=== PATIENT | male | born 1945 | race Caucasian/White ===

== ENCOUNTER 2021-02-20 12:40 | Outpatient (CLI) | payer BC ==
[2021-02-20] MEDS ORDERED: OMNIPAQUE 350 MG/ML, 100ML BOTTLE ONE (15:52)
== END 2021-02-20 23:59 | disposition home or self-care (01) ==
LOC: CFH 12:40
PROVIDERS: ATTEND Internal Medicine Cardiovascular Disease
DX: Z01.818 Encounter for other preprocedural examination (principal); C95.90 Leukemia, unspecified not having achieved remission; I48.91 Unspecified atrial fibrillation; I48.92 Unspecified atrial flutter; R91.8 Other nonspecific abnormal finding of lung field
CPT/HCPCS: 71046; 75572; Q9967

== ENCOUNTER → 2021-02-20 | Outpatient (CLI) | payer BC | END | disposition home or self-care (01) | LOC: STAR 14:09 | PROVIDERS: ATTEND Family Medicine | DX: Z20.822 Contact with and (suspected) exposure to COVID-19 (principal) | CPT/HCPCS: U0003 ==

== ENCOUNTER 2021-02-25 05:59 | Inpatient (IN) | payer BC ==
[~2021-02-25] VITALS: Ht 190.5 cm; Wt 103.0 kg
[2021-02-25] MEDS ORDERED: SODIUM CHLORIDE 0.9% 1,000 ML IV SCH (06:30)
[2021-02-25] MEDS ORDERED: SODIUM CHLORIDE 0.9% 1,000 ML IV ONE (06:30)
[2021-02-25 06:37] VITALS: BP 121/75
[2021-02-25] MEDS ORDERED: METO25TA91 PO (06:44)
[2021-02-25] MEDS ORDERED: ATOR20TA37 PO (06:44)
[2021-02-25] MEDS ORDERED: CITA20TA9 PO (06:44)
[2021-02-25] MEDS ORDERED: RIVA15TA PO (06:44)
[2021-02-25] MEDS ORDERED: DILT360C26 PO (06:44)
[2021-02-25] MEDS ORDERED: LIDOCAINE 1%, 20ML ONE (07:21)
[2021-02-25] MEDS ORDERED: FENTANYL PF 100 MCG/2ML ONE (07:40)
[2021-02-25] MEDS ORDERED: PHENYLEPHRINE 10 MG/ML ONE (07:51)
[2021-02-25] MEDS ORDERED: ONDANSETRON 2MG/ML, 2ML ONE (07:52)
[2021-02-25] MEDS ORDERED: PROPOFOL 10 MG/ML, 20ML ONE (07:52)
[2021-02-25] MEDS ORDERED: DEXAMETHASONE 4 MG/ML, 1ML ONE (07:52)
[2021-02-25] MEDS ORDERED: SUCCINYLCHOLINE 20 MG/ML, 10ML ONE (07:52)
[2021-02-25] MEDS ORDERED: ROCURONIUM 10MG/ML,5ML ONE ×2 (07:52→10:04)
[2021-02-25] MEDS ORDERED: LABETALOL 5MG/ML, 20ML IV PRN (08:00)
[2021-02-25] MEDS ORDERED: OXYcodone 5 MG/5 ML ORAL.SOL UDC PO PRN (08:00)
[2021-02-25] MEDS ORDERED: ONDANSETRON 2MG/ML, 2ML IVPush PRN (08:00)
[2021-02-25] MEDS ORDERED: FENTANYL PF 100 MCG/2ML IV PRN (08:00)
[2021-02-25] MEDS ORDERED: hydrALAzine 20 MG/ML, 1ML IV PRN (08:00)
[2021-02-25] MEDS ORDERED: PROMETHAZINE 25 MG/ML, 1ML IVPush PRN (08:00)
[2021-02-25] MEDS ORDERED: ACETAMINOPHEN 325 MG TABLET PO PRN (08:00)
[2021-02-25] MEDS ORDERED: EPHEDRINE 50 MG/ML, 1ML IVPush PRN (08:00)
[2021-02-25] MEDS ORDERED: HYDROmorphone 1 MG/ML, 1ML INJ IVPush PRN (08:00)
[2021-02-25] MEDS ORDERED: HEPARIN 1,000 UNITS/ML, 10ML ONE (09:38)
[2021-02-25] MEDS ORDERED: SUGAMMADEX 200 MG/2 ML IVPush ONE (11:02)
[2021-02-25] MEDS: RIVAROXABAN 20 MG TABLET PO SCH (11:30)
[2021-02-25] MEDS ORDERED: ZOLPIDEM 5MG TABLET PO PRN (11:30)
[2021-02-25] MEDS ORDERED: RIVAROXABAN 15 MG TABLET PO SCH (11:30)
[2021-02-25 18:45] VITALS: BP 116/83
[2021-02-25 19:40] VITALS: BP 133/86
[2021-02-25] MEDS: ATORVASTATIN 20 MG TABLET PO SCH (20:58)
[2021-02-25] MEDS: COLCHICINE 0.6 MG CAPSULE PO SCH (20:58)
[2021-02-26 01:04] VITALS: BP 119/85
[2021-02-26 07:30] VITALS: BP 142/89
[2021-02-26] MEDS: COLCHICINE 0.6 MG CAPSULE PO SCH ×2 (08:03→20:46)
[2021-02-26] MEDS: DILTIAZEM CD 180 MG CAP.ER.24H PO SCH (08:04)
[2021-02-26] MEDS: RIVAROXABAN 20 MG TABLET PO SCH (08:04)
[2021-02-26] MEDS: CITALOPRAM 20 MG TABLET PO SCH (08:04)
[2021-02-26] MEDS: ACETAMINOPHEN 325 MG TABLET PO PRN ×2 (08:26→20:46)
[2021-02-26] MEDS: SOTALOL 80MG TABLET PO SCH ×2 (09:10→17:45)
[2021-02-26 15:00] VITALS: BP 128/81
[2021-02-26] MEDS: ATORVASTATIN 20 MG TABLET PO SCH (20:46)
[2021-02-26 20:49] VITALS: BP 139/81
[2021-02-27 01:41] VITALS: BP 122/77
[2021-02-27 05:34] LABS: CREATININE 1.17 mg/dL (0.7-1.3)
[2021-02-27 05:59] VITALS: BP 120/75
[2021-02-27] MEDS: SOTALOL 80MG TABLET PO SCH (06:00)
[2021-02-27 07:49] VITALS: BP 129/76
[2021-02-27] MEDS: CITALOPRAM 20 MG TABLET PO SCH (08:23)
[2021-02-27] MEDS: DILTIAZEM CD 180 MG CAP.ER.24H PO SCH (08:23)
[2021-02-27] MEDS: COLCHICINE 0.6 MG CAPSULE PO SCH (08:23)
[2021-02-27] MEDS: RIVAROXABAN 20 MG TABLET PO SCH (08:23)
[2021-02-27] MEDS ORDERED: COLC0.6C3 PO (09:01)
[2021-02-27] MEDS ORDERED: ACET325T26 PO (09:01)
== END 2021-02-27 11:13 | disposition home or self-care (01) | DRG 274 ==
LOC: CACL 05:59 → OBSVTOIN 11:16 → ORIP 11:16 → 5SO 12:37 → DCLOUNGE 02-27 11:08
PROVIDERS: ADMIT Internal Medicine Cardiovascular Disease; ATTEND Internal Medicine Cardiovascular Disease
PROC: 02583ZZ Destruction of Conduction Mechanism, Percutaneous Approach (ICD-10-PCS; 2021-02-25)
PROC: 4A0234Z Measurement of Cardiac Electrical Activity, Percutaneous Approach (ICD-10-PCS; 2021-02-25)
PROC: 02K83ZZ Map Conduction Mechanism, Percutaneous Approach (ICD-10-PCS; 2021-02-25)
PROC: 4A023FZ Measurement of Cardiac Rhythm, Percutaneous Approach (ICD-10-PCS; principal; 2021-02-25 08:00)
DX: I48.91 Unspecified atrial fibrillation (principal); D68.69 Other thrombophilia; I48.3 Typical atrial flutter; F32.9 Major depressive disorder, single episode, unspecified; E78.5 Hyperlipidemia, unspecified; Z85.6 Personal history of leukemia; Z92.21 Personal history of antineoplastic chemotherapy
CPT/HCPCS: 85347; 93312; 93321; 93325; 93613; 93655; 93656; 93657; 93662; C1730; C1732; C1759; C1766; C1893; C1894; C8929; J0330; J1100; J1644; J2370; J2405; J2704; J3010; J3490; 36415; 82565; 93005; G0378